=== PATIENT | male | born 1980 | race Caucasian/White ===

== ENCOUNTER 2018-10-16 12:52 | Emergency (ER) | payer BC, OTHER ==
[2018-10-16 13:17] VITALS: BP 118/74
[2018-10-16] MEDS ORDERED: Triamcinolone Acetonide* 40 MG/ML 1 ML VIAL IM ONE (13:25)
--- NOTE | 2018-10-16 13:32 | UC ---
Skin Complaint HPI - HPI Summary HPI Summary: 38 yo male with the onset of rash 3-4 days ago getting worse pruritic works outside - History of Current Complaint Chief Complaint: UCSkin Time Seen by Provider: 10/16/18 13:20 Stated Complaint: SKIN CONCERN Hx Obtained From: Patient Onset/Duration: Sudden Onset, Lasting Days Skin Exposure Onset/Duration: Minutes Ago Timing: Constant Onset Severity: Mild Current Severity: Mild Pain Intensity: 0 Pain Scale Used: 0-10 Numeric Location: Other - chin/right hand/left arm/genitalia Character: Swelling, Pruritus, Redness Aggravating Factor(s): Nothing Alleviating Factor(s): Nothing Associated Signs & Symptoms: Positive: Rash. Negative: Nausea, Vomiting, Numbness, Thirst, Diaphoresis, Weakness, Pallor, Shivering, Difficulty Breathing , Fever, Chills, Cough, Wheezing, Chest Pain, Hoarseness, Throat Tightening, Abdominal Pain, Lightheadedness, Syncope, Drainage, Bruising, Tenderness, Red Streaks, Joint Swelling - Allergy/Home Medications Allergies/Adverse Reactions: Allergies Allergy/AdvReac Type Severity Reaction Status Date / Time No Known Allergies Allergy Verified 10/16/18 13:16 Home Medications: Home Medications NK [No Home Medications Reported] 10/16/18 [History Confirmed 10/16/18] PMH/Surg Hx/FS Hx/Imm Hx Previously Healthy: Yes - Surgical History Surgical History: Yes Surgery Procedure, Year, and Place: jaw surgery-1998; right thumb surgery--1998 - Social History Alcohol Use: Occasionally Substance Use Type: None Smoking Status (MU): Former Smoker Have You Smoked in the Last Year: Yes When Did the Patient Quit Smoking/Using Tobacco: quit about 6 months ago Review of Systems All Other Systems Reviewed And Are Negative: Yes Constitutional: Positive: Negative Skin: Positive: Rash Eyes: Positive: Negative ENT: Positive: Negative Respiratory: Positive: Negative Cardiovascular: Positive: Negative Gastrointestinal: Positive: Negative Genitourinary: Positive: Negative Motor: Positive: Negative Neurovascular: Positive: Negative Musculoskeletal: Positive: Negative Neurological: Positive: Negative Psychological: Positive: Negative Physical Exam Triage Information Reviewed: Yes Appearance: Well-Appearing, No Pain Distress, Well-Nourished Vital Signs: Initial Vital Signs Temp 98.4 F 10/16/18 13:12 Pulse 70 10/16/18 13:12 Resp 16 10/16/18 13:12 BP 118/74 10/16/18 13:12 Pulse Ox 99 10/16/18 13:12 Vital Signs Reviewed: Yes Eyes: Positive: Conjunctiva Clear ENT: Positive: Hearing grossly normal. Negative: Nasal congestion, Nasal drainage, Trismus, Muffled voice, Hoarse voice Neck: Positive: Supple, Nontender, No Lymphadenopathy Respiratory: Positive: Lungs clear, Normal breath sounds, No respiratory distress, No accessory muscle use Cardiovascular: Positive: RRR Abdomen Description: Positive: Nontender Bowel Sounds: Positive: Present Musculoskeletal: Positive: ROM Intact, No Edema Neurological: Positive: Alert Psychological Exam: Normal Skin Exam: Other - rash c/w contact dermatitis Course/Dx - Diagnoses Provider Diagnosis: Contact dermatitis Discharge - Sign-Out/Discharge Documenting (check all that apply): Patient Departure All imaging exams completed and their final reports reviewed: No Studies - Discharge Plan Condition: Stable Disposition: HOME Patient Education Materials: Contact Dermatitis (ED) Referrals: [facility] [place], [place] [facility] [Outside] - If Needed Additional Instructions: epsom salt compresses or soaks if needed for itch or if lesions start oozing benadryl 25 mg two at bedtime if needed for itching - Billing Disposition and Condition Condition: STABLE Disposition: Home
== END 2018-10-16 13:43 | disposition home or self-care (01) ==
LOC: UCCORT 12:52
DX: L25.9 Unspecified contact dermatitis, unspecified cause (principal); Z87.891 Personal history of nicotine dependence
CPT/HCPCS: 96372; 99201; G0463; J3301